=== PATIENT | female | born 1985 | race African-American/Black ===

== ENCOUNTER 2017-03-17 19:36 | Emergency (ER) | payer BC ==
[~2017-03-17] VITALS: Ht 170.2 cm; Wt 84.4 kg
[~2017-03-17 19:36] MED LIST: INDOCIN50 MG PO; IRON325 M1 PO; TYLENOL WITH C1 EACH PO
[2017-03-17 20:33] LABS: HEMATOCRIT 35.8 % (36.0-46.0); MCH 35.8 PG (29.0-34.0); MCHC 34.6 G/DL (30.0-36.0); MCV 103.5 FL (83-99); MEAN PLAT.VOLUME 11.5 uM^3 (9.5-12.4); PLATELET COUNT 270 K/uL (156-360); RBC DIS.WIDTH-CV 11.9 % (11.8-14.6); RBC DIS.WIDTH-SD 44.8 % (39-53); RED BLOOD COUNT 3.46 M/uL (3.80-5.20); WHITE BLOOD COUNT 8.7 K/uL (4.1-10.2)
[2017-03-17 20:43] LABS: CHLORIDE 108 mEq/L (99-109); POTASSIUM 3.5 mEq/L (3.7-5.4); SODIUM 139 mEq/L (136-147)
[2017-03-17 20:45] LABS: GLUCOSE 90 mg/dL (70-99)
[2017-03-17 20:47] LABS: ANION GAP 7 MEQ/L (2-14); TOTAL BILIRUBIN 0.8 mg/dL (0.0-1.0)
[2017-03-17 20:49] LABS: ALKALINE PHOSPHATASE 61 IU/L (3-129); GFR ESTIMATE (CALCULATED) > 59 mL/min/
[2017-03-17 20:50] LABS: UREA NITROGEN (BUN) 8 mg/dL (9-23)
[2017-03-17 20:59] LABS: QUANTITATIVE HCG < 4.0 MIU/ML
[2017-03-17 21:00] LABS: ADD MIUA? YES; BILIRUBIN NEGATIVE; BLOOD NEGATIVE; COLOR YELLOW ((YELLOW)); GLUCOSE (STRIP) NEGATIVE; KETONES NEGATIVE; LEUKOCYTES NEGATIVE; NITRITE NEGATIVE; PROTEIN (STRIP) NEGATIVE; SPECIFIC GRAVITY 1.016 (1.000-1.030)
[2017-03-17 21:08] LABS: BACTERIA RARE /HPF; EPITHELIAL CELLS 2+ /HPF; MUCUS TRACE /LPF; RED BLOOD CELLS 0-5 /HPF (0-5); UCUL ADDED? NO; WHITE BLOOD CELLS 0-5 /HPF (0-5)
[2017-03-17] MEDS ORDERED: NAPROXEN500 MG PO (23:07)
[2017-03-17] MEDS ORDERED: BENTYL10 MG PO (23:07)
[2017-03-17 23:36] VITALS: BP 117/56
== END 2017-03-17 23:37 | disposition home or self-care (01) ==
LOC: EME 19:36
DX: R10.2 Pelvic and perineal pain (principal)
CPT/HCPCS: 76856; 80053; 81003; 84702; 85027; 99281; 99285; J1885

== ENCOUNTER 2017-10-11 17:27 | Outpatient (CLI) | payer BC ==
[~2017-10-11] VITALS: Ht 170.2 cm; Wt 97.6 kg
[~2017-10-11 17:27] MED LIST changes: +BENTYL10 MG PO; +NAPROXEN500 MG PO
[2017-10-11 17:43] VITALS: BP 111/61
[2017-10-11 18:36] LABS: SOURCE SWAB
[2017-10-11 19:09] VITALS: BP 112/63
[2017-10-11 19:10] LABS: APPEARANCE SL.HAZY ((CLEAR)); BILIRUBIN NEGATIVE; BLOOD NEGATIVE; COLOR YELLOW ((YELLOW)); GLUCOSE (STRIP) NEGATIVE; KETONES NEGATIVE; LEUKOCYTES NEGATIVE; NITRITE NEGATIVE; PROTEIN (STRIP) NEGATIVE; SPECIFIC GRAVITY 1.021 (1.000-1.030); UROBILINOGEN 0.2 MG/DL (0.2-1.0)
[2017-10-11 19:29] LABS: BACTERIA NONE SEEN /HPF; EPITHELIAL CELLS 1+ /HPF; MUCUS TRACE /LPF; RED BLOOD CELLS 0-5 /HPF (0-5); UCUL ADDED? NO; WHITE BLOOD CELLS 0-5 /HPF (0-5)
[2017-10-11 19:48] LABS: CANDIDA DNA PROBE NEGATIVE; GARDNERELLA DNA PROBE POSITIVE; TRICHOMONAS DNA PROBE NEGATIVE
[2017-10-11] MEDS ORDERED: PRENATAL TABLE1 EACH PO (20:00)
== END 2017-10-11 20:02 | disposition home or self-care (01) ==
LOC: LDRP-OP 17:27 → 2WEST 17:28 → LDRP-OP 01-08 07:46
PROVIDERS: Midwife
DX: O26.893 Other specified pregnancy related conditions, third trimester (principal); R10.9 Unspecified abdominal pain; M54.5 Low back pain; O99.413 Diseases of the circulatory system complicating pregnancy, third trimester; I34.0 Nonrheumatic mitral (valve) insufficiency; O34.211 Maternal care for low transverse scar from previous cesarean delivery; Z86.19 Personal history of other infectious and parasitic diseases; Z3A.31 31 weeks gestation of pregnancy
CPT/HCPCS: 59025; 81003; 82731; 87086; 87480; 87491; 87510; 87591; 87660; G0378

== ENCOUNTER 2017-10-15 23:44 | Outpatient (CLI) | payer BC ==
[~2017-10-15 23:44] MED LIST changes: +PRENATAL TABLE1 EACH PO
[2017-10-16 00:05] VITALS: BP 116/60
[2017-10-16] MEDS ORDERED: FLAGYL500 MG PO ×2 (01:02→01:07)
== END 2017-10-16 01:15 | disposition home or self-care (01) ==
LOC: LDRP-OP 23:44 → 2WEST 23:45 → LDRP-OP 01-08 20:24
DX: O26.893 Other specified pregnancy related conditions, third trimester (principal); O60.03 Preterm labor without delivery, third trimester; Z3A.32 32 weeks gestation of pregnancy; M54.5 Low back pain
CPT/HCPCS: 59025; 81003; 87077; 87086; 87186; G0378

== ENCOUNTER 2017-11-25 21:20 | Outpatient (CLI) | payer BC ==
[~2017-11-25 21:20] MED LIST changes: +FLAGYL500 MG PO
[2017-11-25 21:36] VITALS: BP 113/56
== END 2017-11-25 22:20 | disposition home or self-care (01) ==
LOC: LDRP-OP 21:20 → 2WEST 21:21 → LDRP-OP 01-08 01:40
DX: O26.893 Other specified pregnancy related conditions, third trimester (principal); Z3A.38 38 weeks gestation of pregnancy
CPT/HCPCS: 59025; G0378

== ENCOUNTER 2017-12-06 09:44 | Inpatient (IN) | payer BC ==
[2017-12-06 10:54] VITALS: BP 126/58
[2017-12-06] MEDS ORDERED: ENDOCET 5-3251 EACH PO (11:54)
[2017-12-06] MEDS ORDERED: IBUPROFEN800 MG PO (11:54)
[2017-12-06 20:35] VITALS: BP 130/67
[2017-12-06 22:18] VITALS: BP 119/65
[2017-12-06 22:24] LABS: AMPHETAMINE NEGATIVE (500 ng/mL); BARBITURATES NEGATIVE (200 ng/mL); BENZODIAZEPINES NEGATIVE (150 ng/mL); BUPRENORPHINE NEGATIVE (10 ng/mL); COCAINE NEGATIVE (150 ng/mL); METHADONE NEGATIVE (200 ng/mL); METHAMPHETAMINE NEGATIVE (500 ng/mL); OPIATES (MORPHINE) NEGATIVE (100 ng/mL); OXYCODONE NEGATIVE (100 ng/mL); PHENCYCLIDINE NEGATIVE (25 ng/mL); PROPOXYPHENE NEGATIVE (300 ng/mL); THC CANNABINOIDS NEGATIVE (50 ng/mL); TRICYCLIC ANTIDEPRESSANTS NEGATIVE (300 ng/mL)
[2017-12-07 01:13] VITALS: BP 112/58
[2017-12-07 02:43] VITALS: BP 122/60
[2017-12-07 05:13] LABS: BASOPHIL (%) 0.1 % (0-1); EOSINOPHIL (%) 0.2 % (0-5); HEMATOCRIT 30.2 % (36.0-46.0); IMMATURE GRANULOCYTE (%) 0.6 % (0.0-0.7); LYMPHOCYTE (%) 9.9 % (15-42); LYMPHOCYTE COUNT 1.2 K/uL (1.0-2.8); MCH 35.2 PG (29.0-34.0); MCHC 33.1 G/DL (30.0-36.0); MCV 106.3 FL (83-99); MONOCYTE (%) 6.5 % (3-12); MONOCYTE COUNT 0.8 K/uL (0-0.8); NEUTROPHIL (%) 82.7 % (45-76); NEUTROPHIL COUNT 10.4 K/uL (1.8-6.4); PLATELET COUNT 194 K/uL (156-360); RBC DIS.WIDTH-CV 14.8 % (11.8-14.6); RBC DIS.WIDTH-SD 57.7 % (39-53); RED BLOOD COUNT 2.84 M/uL (3.80-5.20); WHITE BLOOD COUNT 12.5 K/uL (4.1-10.2)
[2017-12-07 21:52] VITALS: BP 111/63
[2017-12-08 02:36] VITALS: BP 119/61
[2017-12-08 08:33] VITALS: BP 127/60
[2017-12-08 11:08] VITALS: BP 107/57
[2017-12-08 11:28] VITALS: BP 121/65
[2017-12-08 14:39] VITALS: BP 113/61
[2017-12-08 22:30] VITALS: BP 119/57
[2017-12-09 07:36] VITALS: BP 121/58
== END 2017-12-09 12:28 | disposition home or self-care (01) | DRG 765 ==
LOC: 2SOUTH 09:44 → 2WEST 10:31 → 2SOUTH 10:33 → 2WEST 12-09 12:28 → 2SOUTH 12-10 15:27
PROVIDERS: Obstetrics & Gynecology Gynecology
PROC: 10D00Z1 Extraction of Products of Conception, Low, Open Approach (ICD-10-PCS; principal; 2017-12-06)
PROC: 0UB70ZZ Excision of Bilateral Fallopian Tubes, Open Approach (ICD-10-PCS; principal; 2017-12-06)
DX: O34.211 Maternal care for low transverse scar from previous cesarean delivery (principal); Z30.2 Encounter for sterilization; O69.81X0 Labor and delivery complicated by cord around neck, without compression, not applicable or unspecified; O99.824 Streptococcus B carrier state complicating childbirth; O99.42 Diseases of the circulatory system complicating childbirth; I34.0 Nonrheumatic mitral (valve) insufficiency; Z3A.39 39 weeks gestation of pregnancy; Z37.0 Single live birth
CPT/HCPCS: 36415; 85025; 86780; 86850; 86900; 86901; 88302; J0690; J2250; J2274; J2405; J7120; S0020